=== PATIENT | female | born 1975 | race Caucasian/White ===

== ENCOUNTER 2017-10-15 12:23 | Inpatient (IN) | payer SELFPAY ==
--- NOTE | 2017-10-15 13:52 | RAD ---
THREE VIEWS LEFT ANKLE: INDICATIONS: Posttraumatic pain related to fall. FINDINGS: There is a displaced medial malleolar fracture. Comminuted, displaced distal fibula fracture is pres ent. There is disruption of the ankle mortise. A posterior malleolar fracture is present with mild displacement. Calcaneal enthesophytes are seen. IMPRESSION: Trimalleolar fracture with displacement and disruption of the ankle mortise. Recommend orthopedic co nsultation. POS: [facility]
[2017-10-15] MEDS ORDERED: Dextrose 50% Abboject 50 ML SYRINGE SLOW IVP PRN (14:37)
[2017-10-15] MEDS ORDERED: Ondansetron HCl/PF 4 MG/2 ML Vial IVP PRN ×2 (14:37→18:34)
[2017-10-15] MEDS ORDERED: Dextrose 5% in Water 1,000 ML IV PRN (14:37)
[2017-10-15] MEDS ORDERED: traMADol HCl 50 MG TAB PO PRN ×2 (14:37→19:58)
[2017-10-15] MEDS ORDERED: Ondansetron HCl/PF 4 MG/2 ML Vial ONE ×2 (14:40→16:15)
[2017-10-15 14:51] LABS: #Eosinphils 0.1 thou/uL (0.0-0.7); #Lymphocytes 1.6 thou/uL (1.20-3.40); #Neutrophils 7.2 thou/uL (1.40-6.50); %Basophils 0.1 % (0.0-1.0); %Lymphocytes 16.3 % (21.0-51.0); %Neutrophils 72.6 % (42.0-75.0); Hemoglobin 10.9 g/dL (12.0-16.0); Mean Corpuscular HGB CONC 31.9 g/dL (32.0-36.0); Mean Corpuscular Hemoglobin 27.9 pg (27.0-31.0); Mean Corpuscular Volume 87.4 fl (81.0-99.0); Mean Platelet Volume 9.3 fL (7.4-10.4); Platelet Count 216 thou/uL (130-400); RBC Distribution Width 14.1 % (11.5-14.5); Red Blood Cell (RBC) Count 3.89 mill/uL (4.20-5.40); White Blood Cell (WBC) Count 9.9 thou/uL (4.8-10.8)
[2017-10-15] MEDS ORDERED: CEFAZOLIN 1 GM VIAL IM SCH (15:00)
[2017-10-15 15:08] LABS: BHCG - Serum Negative (NEGATIVE); Pregs Control Background? CLEAR/WHITE (CLR/WHITE); Pregs Control Bar Appear? YES (CONTROL BAR)
[2017-10-15] MEDS ORDERED: Bupivacaine 0.5% 10 ML VIAL ONE (15:08)
[2017-10-15] MEDS ORDERED: CEFAZOLIN/Water 2 GM/20 ML SYRINGE ONE ×2 (15:10→15:12)
[2017-10-15 15:14] LABS: Anion Gap 13 mmol/L (10-20); BUN (Urea Nitrogen) 16 mg/dL (7.0-18.7); Bilirubin, Total 0.2 mg/dL (0.2-1.2); Calc. Creatinine Clearance 0 mL/min (70-130); Calcium 8.9 mg/dL (7.8-10.44); Carbon Dioxide 23 mmol/L (22-29); Chloride 104 mmol/L (98-107); Estimated GFR-MDRD 85; Glucose 96 mg/dL (70-105); Potassium 4.5 mmol/L (3.5-5.1); Protein, Total 7.6 g/dL (6.0-8.3); Sodium 135 mmol/L (136-145)
[2017-10-15 15:15] LABS: ALT (SGPT) 22 U/L (8-55); AST (SGOT) 22 U/L (5-34); Alkaline Phosphatase 79 U/L (40-150); Globulin 3.6 g/dL (2.4-3.5)
[2017-10-15] MEDS ORDERED: Fentanyl 100 MCG/2 ML VIAL ONE ×6 (15:32→19:05)
[2017-10-15] MEDS ORDERED: Midazolam HCl 2 mg/2 ml Vial ONE (15:32)
[2017-10-15] MEDS ORDERED: Clindamycin/D5W 900 mg/50 ml Premix Bag ONE (15:53)
[2017-10-15] MEDS ORDERED: Levofloxacin 500 mg/D5W 100 ml Premix Bag ONE (15:53)
--- NOTE | 2017-10-15 15:57 | HP ---
DATE OF ADEMISSION: 10/15/2017 REQUESTING PHYSICIAN: Shiloh Rao PA-C. CONSULTING PHYSICIAN: Dr. Korey Burrows. ADMITTING PHYSICIAN: Dr. Ross Naqvi. CHIEF COMPLAINT: Right ankle fracture. HISTORY OF PRESENT ILLNESS: The patient is a 41-year-old female, who was walking up the ramp to her porch this morning when she slipped and fell, wedging her ankle between the side of the porch and the ramp. She has crutches at home and was using them when she slipped again and landed on her left ankle once again. At this time, she also fell on her left side and hit her left side of her ribcage on the railing. She drove herself to the [facility] and was evaluated here where she was found to have a left trimalleolar fracture. Ortho Surgery was consulted and Dr. Korey Reich has elected to take the patient to surgery today. The patient currently reports her pain is 7/10 after having taken ibuprofen and Tylenol. She reports numbness around the medial malleolus. She denies head injury or LOC, dizzines or lightheadedness. She reports no other injuries. PAST MEDICAL HISTORY: Significant for chronic anemia, unspecified heart murmur , and morbid obesity. SOCIAL HISTORY: She denies alcohol, drug use, or tobacco use. She lives with her 2 children. ALLERGIES: The patient reports an allergy to PENICILLIN, EGGS, and CHICKEN. FAMILY HISTORY: The patient reports that her father had hypertrophic cardiomyopathy. Mother had kidney disease, unspecified. PAST SURGICAL HISTORY: Patient has a history of Ivy-en-Y gastric bypass surgery in 1998. Patient also has a history of laparoscopic cholecystectomy in 1999, as well as a remote history of tonsillectomy. PSYCHIATRIC HISTORY: Negative. REVIEW OF SYSTEMS: A 10-point review of systems is significant for mild lower back pain. Also significant for left-sided rib pain. Her ROS is otherwise negative except as mentioned in the HPI. PHYSICAL EXAMINATION: VITAL SIGNS: BP 138/88, pulse 70, respirations 16, temperature 98.2, and O2 sat 98% on room air. GENERAL APPEARANCE: Morbidly obese adult female, who appears her stated age in no acute distress. HEENT: Her head is normocephalic and atraumatic. Eyes: PERRLA. EOMI. Ears: Atraumatic, no blood or discharge in the external auditory canal. Nose: Nares patent free of discharge. Mouth: Her oropharynx is clear, without lesions. She has her dentition intact. NECK: Supple. Trachea is midline. There is no cervical spine tenderness. RESPIRATORY: Her lungs are clear to auscultation bilaterally with normal effort. CARDIOVASCULAR: She has a regular rate and rhythm. Normal S1 and S2. Distal pulses are 2+ bilaterally. ABDOMEN: She has been an obese but soft abdomen. Bowel sounds are normal. There is no tenderness. MUSCULOSKELETAL: She is neurovascularly intact x4. She has a large 7 cm ecchymosis on her lateral thorax. This is moderately tender to palpation. No bony abnormalities appreciated. SKIN: Her skin is clean, dry, and intact. NEUROLOGIC: GCS is 15. She is alert and oriented x4. She has no focal neurologic deficits. PSYCHIATRIC: Mood and affect are appropriate. LABORATORY FINDINGS: Hematology: WBC 14.9, hemoglobin 10.9, hematocrit 34.0, platelets 216. Beta hCG is negative. RADIOGRAPHIC FINDINGS: Left ankle 3 view radiograph. IMPRESSION: Trimalleolar fracture with displacement and disruption of the ankle mortise. Recommended orthopedic consultation. ASSESSMENT AND PLAN: Left trimalleolar ankle fracture. PLAN: The plan will be for admission to the surgical floor. The patient is scheduled to go to the OR today with Dr. Korey Reich. We will initiate pain control and supportive care measures as needed as well as gastritis prophylaxis. PT and OT consult will be placed and the patient will be evaluated by them. This patient was seen and examined along with Dr. Ross Naqvi, who agrees with the assessment and plan. [facility]
[2017-10-15] MEDS ORDERED: Fentanyl 100 MCG/2 ML VIAL SLOW IVP PRN (16:13)
[2017-10-15] MEDS ORDERED: PROPOFOL 200 MG/20 ML VIAL ONE (16:15)
[2017-10-15] MEDS ORDERED: Dexamethasone 20 MG/5 ML VIAL ONE (16:15)
[2017-10-15] MEDS ORDERED: Lidocaine 1% PF 5 ML VIAL ONE (16:15)
[2017-10-15] MEDS ORDERED: Ketorolac Tromethamine 30 MG/ML VIAL ONE (16:15)
[2017-10-15] MEDS ORDERED: Succinylcholine Chloride 20 MG/ML 10 ml SYRINGE FS ONE (16:15)
--- NOTE | 2017-10-15 16:17 | CON ---
DATE OF CONSULTATION: 10/15/2017 CHIEF COMPLAINT: Left ankle pain. HISTORY OF PRESENT ILLNESS: Ms. Zamarripa is a 41-year-old female who fell today walking down her porc h. She lost her balance and slipped. Her foot got caught between 2 boards. She had immediate pain. She did try and ambulate; however, she fell again. She again injured her ankle. She was seen in [facility]. X-rays were obtained which demonstrated a trimalleolar ankle fracture with displacement. She has been given pain medication. She did not eat or drink anything since yesterday . She has had a previous right ankle fracture treated operatively 4 years ago. No other recent inju merced or illnesses. She is obese, but otherwise is healthy. PAST MEDICAL HISTORY: Obesity. PAST SURGICAL HISTORY: Previous right ankle fracture surgery and foot surgery when she was a small c hild. ALLERGIES: PENICILLIN. SOCIAL HISTORY: The patient denies any tobacco, alcohol, or drug use. FAMILY MEDICAL HISTORY: Noncontributory. REVIEW OF SYSTEMS: Positive for mild left ankle pain, otherwise 10 point review of systems is negati ve. PHYSICAL EXAMINATION: VITAL SIGNS: Stable. She is normotensive, 98% on room air. GENERAL: She is sitting upright, in no apparent distress. HEENT: Normocephalic, atraumatic. RESPIRATORY: Breathing comfortably. ABDOMEN: Soft, nontender, nondistended, obese. MUSCULOSKELETAL: Left ankle has abrasion medially as well as superficial abrasion laterally. There is no evidence of open fracture. She has a palpable dorsalis pedis pulse. Intact sensation of the d orsal and plantar aspect of the foot. She is able to wiggle the toes. She has a palpable and visual deformity of the ankle. IMAGES: X-rays demonstrate a trimalleolar ankle fracture with medial malleolar fracture fragment and lateral malleolar fragment displaced. IMPRESSION: Left ankle fracture, trimalleolar. PLAN: At this point, the patient will need to go to the operating room. We will plan for open reduc tion and internal fixation of the left ankle to restore anatomical alignment and promote healing. Ri sks have been reviewed. The patient is obese and has an elevated risk of wound complication, dehisce nce, infection, nonunion, malunion, and others. She wants to proceed with the operation. She will r emain n.p.o. She will have adequate pain control. She will have appropriate DVT prophylaxis and ant ibiotic prophylaxis. She will stay in the hospital overnight for pain control and to mobilize with p hysical therapy.
[2017-10-15] MEDS ORDERED: HYDROmorphone 0.5 MG/0.5 ML SYRINGE ONE (16:58)
[2017-10-15] MEDS ORDERED: Promethazine HCl 25 MG/ML VIAL SLOW IVP PRN (18:34)
[2017-10-15] MEDS ORDERED: Promethazine HCl 25 MG/ML VIAL IM PRN (18:34)
[2017-10-15] MEDS ORDERED: HYDROmorphone 2 MG/ML VIAL SLOW IVP PRN (18:34)
--- NOTE | 2017-10-15 19:32 | OP ---
DATE OF PROCEDURE: 10/15/2017 PROCEDURE: Open reduction and internal fixation of left trimalleolar ankle fracture. PREOPERATIVE DIAGNOSIS: Left trimalleolar ankle fracture. POSTOPERATIVE DIAGNOSIS: Left trimalleolar ankle fracture. COMPLICATIONS: None. ESTIMATED BLOOD LOSS: Minimal. SURGEON: Korey Reich M.D. SKIN WASHER: Ayden Medina PA-C. IMPLANTS: Synthes small fragment instrumentation was used including 1/3 tubular plate as well as 4.0 partially threaded cancellous screws. ANESTHESIA: General plus local. INDICATIONS: Ms. Zamarripa is a 41-year-old female, who has fallen and fractured her left ankle. She has been indicated for open reduction and internal fixation of the ankle to restore anatomic alignmen t and promote healing. Risks have been reviewed and to include infection, wound complication, nerve or vascular injury, nonunion, malunion and others. She elected to proceed with the operation. DESCRIPTION OF PROCEDURE: Ms. Zamarripa was identified in the preoperative holding area. Her correct extremity was marked. She was carried to the operating room. She was positioned supine. General an esthesia was induced. A multidisciplinary timeout was performed. The left lower extremity was prepp ed and draped in sterile fashion. We began the procedure with a lateral incision on the ankle. We dissected down through the subcutane ous tissues to the bony level. We exposed the underlying fracture. We cleared soft tissues. We the n reduced the fracture back into its anatomic position. At this point, we were able to apply a reduc tion clamp. We then placed a 1/3 tubular plate, which was a locking plate along the lateral cortex. We placed multiple screws distally and proximally. This rigidly fixed the fracture. We then took x -ray images confirming our lateral reduction and fixation was appropriate. At this point, we made a small incision over the medial ankle. We dissected down through the subcuta neous tissues to the bony level. Again, we evacuated hematoma and cleared soft tissues. We performe d an anatomic reduction of the medial side of the ankle. We then placed two 4.0 partially threaded s crews across the fracture. These held the fracture well in rigidly. We took final x-ray images. Th e posterior malleolus was well reduced and did not require fixation. We thoroughly irrigated our wounds and closed with 0 Vicryl suture followed by 2-0 Vicryl suture and then nylon for the skin. A sterile dressing and a splint was applied. The patient was taken to the recovery room in good condition without complication.
[2017-10-15 20:05] VITALS: BMI 46.2
--- NOTE | 2017-10-15 21:07 | RAD ---
LEFT ANKLE THREE VIEW 10/15/17 HISTORY: Left ankle plate. COMPARISON: Radiographs same day. FINDINGS: Spot images from fluoroscopic intraoperative views. Satisfactory appearance of the medial and lateral malleolar fracture fragments. Posterior malleolar fracture is present. IMPRESSION: Satisfactory appearance of the bimalleolar fracture treatment. Posterior malleolar fracture is seen. The ankle mortise is not widened. POS: [facility]
[2017-10-15] MEDS: Ibuprofen 600 MG TAB PO SCH ×2 (21:26→21:28)
[2017-10-15] MEDS: Acetaminophen 500 MG TAB PO SCH ×2 (21:27→21:31)
[2017-10-15] MEDS: Famotidine 20 MG TAB PO SCH (21:27)
[2017-10-15] MEDS: traMADol HCl 50 MG TAB PO PRN (21:28)
--- NOTE | 2017-10-15 21:32 | PRG ---
DATE OF SERVICE: 10/15/2017 SUBJECTIVE: This is a postoperative note regarding Dallin, who is a 41-year-old female who is suppo sed to have fell fracturing her left ankle. She is postop day 0 for ORIF of left ankle. Otherwise, she is doing well postoperatively. No further complaints at this time. OBJECTIVE: VITAL SIGNS: Have been reviewed, otherwise has been stable. Physical exam is unchanged from the history and physical. ASSESSMENT AND PLAN: Continue care as noted in history and physical. Postoperative care for open re duction internal fixation of left ankle, PT/OT, pain control. Discharge disposition is pending.
[2017-10-15] MEDS: Clindamycin/D5W 900 MG in Premix Bag 1 BAG IVPB SCH (23:37)
[2017-10-16] MEDS: Acetaminophen 500 MG TAB PO SCH ×3 (02:39→15:38)
[2017-10-16] MEDS: traMADol HCl 50 MG TAB PO PRN (03:30)
[2017-10-16 04:24] LABS: #Lymphocytes 0.7 thou/uL (1.20-3.40); #Monocytes 0.2 thou/uL (0.11-0.59); #Neutrophils 5.3 thou/uL (1.40-6.50); %Basophils 0.1 % (0.0-1.0); %Eosinophils 0.3 % (0.0-10.0); %Lymphocytes 11.4 % (21.0-51.0); %Monocytes 3.2 % (0.0-10.0); %Neutrophils 84.9 % (42.0-75.0); Mean Corpuscular HGB CONC 32.1 g/dL (32.0-36.0); Mean Corpuscular Hemoglobin 28.3 pg (27.0-31.0); Mean Corpuscular Volume 88.1 fl (81.0-99.0); Mean Platelet Volume 9.4 fL (7.4-10.4); Platelet Count 186 thou/uL (130-400); RBC Distribution Width 14.1 % (11.5-14.5); Red Blood Cell (RBC) Count 3.54 mill/uL (4.20-5.40); White Blood Cell (WBC) Count 6.2 thou/uL (4.8-10.8)
[2017-10-16 04:39] LABS: Anion Gap 11 mmol/L (10-20); BUN (Urea Nitrogen) 13 mg/dL (7.0-18.7); Calc. Creatinine Clearance 215 mL/min (70-130); Calcium 8.8 mg/dL (7.8-10.44); Carbon Dioxide 26 mmol/L (22-29); Chloride 103 mmol/L (98-107); Estimated GFR-MDRD 83; Glucose 166 mg/dL (70-105); Potassium 4.7 mmol/L (3.5-5.1); Sodium 135 mmol/L (136-145)
[2017-10-16] MEDS: Ibuprofen 600 MG TAB PO SCH (05:29)
[2017-10-16] MEDS: Clindamycin/D5W 900 MG in Premix Bag 1 BAG IVPB SCH (08:46)
[2017-10-16] MEDS ORDERED: Enoxaparin Sodium 40 MG/0.4 ML SYRINGE SC SCH (09:00)
[2017-10-16] MEDS ORDERED: Ibuprofen 600 MG TAB PO SCH (09:37)
[2017-10-16] MEDS: traMADol HCl 50 MG TAB PO SCH ×2 (09:53→15:39)
[2017-10-16] MEDS: Famotidine 20 MG TAB PO SCH (09:55)
[2017-10-16] MEDS: Ibuprofen 800 MG TAB PO SCH ×2 (09:55→15:39)
--- NOTE | 2017-10-16 11:08 | PRG-2 ---
DATE OF SERVICE: 10/16/2017 ATTENDING PHYSICIAN: Dr. Ross Naqvi SUBJECTIVE: This is a 41-year-old female status post repair of a trimalleolar fracture on the left. The patient is currently resting comfortably, however, complains of breakthrough pain on her left. She states that after she takes her scheduled pain medication within a short period of time, the pain returns. She says the pain is typically around 5-6. There were no acute events overnight. OBJECTIVE: VITAL SIGNS: Temperature 98.8, pulse 88, respiratory rate 16, O2 saturation 99% on room air, blood p ressure 136/89. GENERAL: This is a morbidly obese patient who is lying comfortably in bed in no acute distress. HEENT: Atraumatic, normocephalic. RESPIRATORY: Lungs are clear bilaterally. CARDIOVASCULAR: Regular rate and rhythm. ABDOMEN: Soft, nontender. MUSCULOSKELETAL: She is neurovascularly intact. Moves all 4 extremities. NEUROLOGIC: GCS of 15. She is alert and oriented x4. No focal neurological deficits. ASSESSMENT: 1. Left trimalleolar ankle fracture status post repair. 2. Acute traumatic pain. PLAN: 1. Given the patient's body habitus, she is likely appropriate for inpatient rehab as it seems unlik jf that she would do well in an outpatient setting. Inpatient rehab evaluation is pending. While h ere, we will start inpatient PT. The patient has not been seen yet today. 2. Acute traumatic brain. We will change her Ultram to scheduled rather than p.r.n. and reevaluated her pain in the morning. This patient was seen and examined by Dr. Ross Naqvi who agrees with the above plan.
[2017-10-16] MEDS ORDERED: HYDROcodone/Acetaminophen 10/325 mg Tablet PO PRN ×2 (13:00)
--- NOTE | 2017-10-16 14:16 | DIS ---
DATE OF ADMISSION: 10/15/2017 DATE OF DISCHARGE: 10/16/2017 ADMITTING PHYSICIAN: Dr. Ross Naqvi DISCHARGING PHYSICIAN: Dr. Ross Naqvi CONSULTING PHYSICIAN: Dr. Korey Reich REASON FOR HOSPITALIZATION: Ground level fall, left ankle pain. HOSPITAL DIAGNOSIS: Left trimalleolar ankle fracture with displacement. DISCHARGE MEDICATIONS: [place] 10/325, 1-2 tabs p.o. q.4h. FOLLOWUP: Follow up with Dr. Korey Reich in 14 days. ACTIVITY: Nonweightbearing left lower extremity. PROCEDURES: ORIF left trimalleolar ankle fracture. DATE OF PROCEDURE: 2017 SURGEON: Dr. Korey Reich. Please refer to Dr. Reich's operative report for complete details. BRIEF HISTORY OF HOSPITALIZATION: Ms. Zamarripa is a 41-year-old female who had a ground level fall in her home resulting in a left trimalleolar fracture. She was seen in the ER at [facility]. She was evaluated by Dr. Reich of Orthopedics. She was admitted to the hospital by Dr. Naqvi, Trauma Services. She was then taken to the operating room by Dr. Reich for fixation of fracture. On postoperative day #1, she mobilized with Physical Therapy. Rehab referral was made. Case management evaluation was done on postoperative day #1. The patient reported that she preferred to return to home with crutches and did not want to go to rehab. The patient was discharged on postoperative day #1 by the Orthopedic Service. The patient was seen and examined on rounds with Dr. Naqvi, attending surgeon, who agreed with the assessment and plan. MIRANDA
[2017-10-16 16:33] VITALS: BP 149/91; TEMP 99.3
== END 2017-10-16 17:43 | disposition home or self-care (01) | DRG 493 ==
LOC: ERS 12:23 → SURG B 14:37 → SURG A 19:16
PROVIDERS: ADMIT Surgery; ATTEND Surgery
PROC: 0QHK04Z Insertion of Internal Fixation Device into Left Fibula, Open Approach (ICD-10-PCS; principal; 2017-10-15)
PROC: 0QHH04Z Insertion of Internal Fixation Device into Left Tibia, Open Approach (ICD-10-PCS; 2017-10-15)
DX: S82.852A Displaced trimalleolar fracture of left lower leg, initial encounter for closed fracture (principal); Z68.41 Body mass index [BMI] 40.0-44.9, adult; W01.0XXA Fall on same level from slipping, tripping and stumbling without subsequent striking against object, initial encounter; E66.9 Obesity, unspecified
CPT/HCPCS: 36415; 76001; 80048; 80053; 84703; 85025; 96374; 96375; C1713; G8978-GP-CM; G8979-GP-CK; G8987-GO-CJ; G8988-GO-CI; J0690; J1100; J1170; J1650; J1885; J1956; J2001; J2250; J2270; J2405; J2704; J3010; J3490